=== PATIENT | female | born 1950 | race Caucasian/White ===

== ENCOUNTER 2022-01-07 07:56 | Observation (INO) ==
[~2022-01-07 07:56] MED LIST: Buffered Lidocaine 1% SYRIN 1 ml INTRADERM ONE; Gelfoam Sponge SIZE 100 SPONGE ONE; Lactated Ringers 1000 ml BAG 1,000 ML IV SCH; Lidocaine 1% w EPI 1:200,000 SDV 30 ML VIAL ONE; Naloxone 0.4 mg VIAL 0.4 mg/ml 1 ml VIAL IV PRN; Ondansetron 4 mg VIAL 2 MG/ML 2 ml VIAL IV PRN; Thrombin 5,000 UNITS 1 APPLIC KIT - topical use - TOPICAL ONE; fentaNYL 100 mcg/2 ml 50 MCG/ML VIAL IV PRN; oxyCODONE/Acetamin 5/325 mg TAB PO PRN
[2022-01-07] MEDS ORDERED: ceFAZolin 2 GM in NS PREMIX 2 GM/100 ML BAG IVPB ONE (08:07)
[2022-01-07] MEDS ORDERED: ceFAZolin VIAL VIAL ONE (09:35)
[2022-01-07] MEDS ORDERED: fentaNYL 100 mcg/2 ml 50 MCG/ML VIAL ONE ×2 (10:08→12:22)
[2022-01-07] MEDS ORDERED: Rocuronium 50 mg VIAL 10 mg/ml 5 ml VIAL (50 mg) ONE ×2 (10:09→11:05)
[2022-01-07] MEDS ORDERED: Ondansetron 4 mg VIAL 2 MG/ML 2 ml VIAL ONE ×2 (10:13→12:12)
[2022-01-07] MEDS ORDERED: Propofol 10 MG/ML 20 ML BTL ONE (10:13)
[2022-01-07] MEDS ORDERED: Lidocaine 2% PF 5 ML VIAL ONE (10:13)
[2022-01-07] MEDS ORDERED: Dexamethasone IV 4 MG/ML VIAL 1 ml VIAL ONE (10:13)
[2022-01-07] MEDS ORDERED: Phenylephrine 40 mcg/mL 10mL (400mcg) SYRINGE ONE ×2 (10:50→11:12)
[2022-01-07] MEDS ORDERED: Acetaminophen IV 1 GM/100ML 1,000 MG/100 ML BAG IV ONE (11:40)
[2022-01-07] MEDS ORDERED: Ondansetron 4 mg VIAL 2 MG/ML 2 ml VIAL IV PRN (11:51)
[2022-01-07] MEDS ORDERED: Magnesium Hydroxide LIQ 30 ML UDC PO PRN (11:51)
[2022-01-07] MEDS ORDERED: Bismuth Subsalicylate (BTL) 525 MG/30 ML (BULK BTL) PO PRN (11:56)
[2022-01-07] MEDS ORDERED: Morphine 2 MG/ML SYRINGE IV PRN (11:56)
[2022-01-07] MEDS ORDERED: Lactated Ringers 1000 ml BAG 1,000 ML IV SCH (12:00)
[2022-01-07] MEDS ORDERED: oxyCODONE/Acetamin 5/325 mg TAB ONE (12:22)
[2022-01-07] MEDS: HYDROcodone/ACETAMIN 5/325 mg TAB PO PRN ×2 (14:06→23:39)
[2022-01-08] MEDS: HYDROcodone/ACETAMIN 5/325 mg TAB PO PRN (05:15)
[2022-01-08 08:12] VITALS: BP 151/76
[2022-01-08] MEDS ORDERED: Cholecalciferol (VIT D3) 1,000 unit TAB PO SCH (09:00)
== END 2022-01-08 11:15 | disposition home or self-care (01) ==
LOC: OR 07:56 → SSU 07:56
PROVIDERS: ADMIT Neurological Surgery; ATTEND Neurological Surgery